=== PATIENT | male | born 1980 | race Hispanic/Latino ===

== ENCOUNTER 2023-09-30 11:02 | Emergency (ER) | payer SELFPAY ==
[2023-09-30 11:07] VITALS: BP 122/85
[2023-09-30 11:20] LABS: % Basophils 0.8 % (0-2); % Eosinophils 1.2 % (0-6); % Immature Granulocytes 0.4 % (0-0.5); % Lymphocytes 31.1 % (20.5-51.1); % Monocytes 7.2 % (1.7-9.3); % Neutrophils 59.3 % (42.2-75.2); Absolute Basophils 0.1 10^3/uL (0-0.2); Absolute Eosinophils 0.1 10^3/uL (0-0.7); Absolute Lymphocytes 2.3 10^3/uL (1.2-3.4); Absolute Monocytes 0.5 10^3/uL (0.1-0.6); Absolute Neutrophils 4.4 10^3/uL (1.4-6.5); Hematocrit 49.2 % (39.0-52.0); Hemoglobin 17.5 g/dL (13.0-18.0); Mean Corp Hgb Conc. 35.6 g/dL (33.0-37.0); Mean Corpuscular Hgb 29.9 pg (27.0-31.0); Nucleated Red Blood Cells % 0 % (-); Platelet Count 301 10^3/uL (130-400); Red Blood Cell Count 5.86 10^6/uL (4.70-6.10); White Blood Cell Count 7.4 10^3/uL (4.8-10.8)
[2023-09-30 11:39] LABS: ALT (SGPT) 41 U/L (0-50); AST (SGOT) 33 U/L (17-59); Albumin 4.3 g/dl (3.5-5.0); Alkaline Phosphatase 133 U/L (38-126); Blood Urea Nitrogen 17 mg/dl (9-20); Calcium 9.1 mg/dl (8.4-10.2); Carbon Dioxide 26 mmol/L (22-30); Chloride 104 mmol/L (98-107); Glucose 299 mg/dl (70-99); Potassium 4.2 mmol/L (3.5-5.1); Sodium 136 mmol/L (135-145); Total Protein 7.1 g/dl (6.3-8.2); eGFR > 60.00
[2023-09-30 11:43] LABS: Troponin I < 0.012 ng/ml
[2023-09-30 11:48] VITALS: BMI 25.1
[2023-09-30 12:00] VITALS: BP 100/77
--- NOTE | 2023-09-30 12:21 | ED.GENMED ---
History of Present Illness
General
Chief Complaint: Chest Problem
Source: patient
Exam Limitations: none
Time Seen by Provider: 09/30/23 12:05
Travel History
Have you had any contact with someone who has COVID-19?: No
Do you have any symptoms of coronavirus? Fever > 100 degrees, chills, cough, shortness of breath, sore throat, loss of taste or smell, muscle aches, or headache?: No
History of Present Illness
History of Present Illness:
43-year-old male with syz-zivwecr-pwsmctwal diabetes presents here for evaluation of chest pain that started yesterday. Sharp stabbing in nature intermittent made worse with breathing. He notes slight short of breath and dizziness as well. He
flew here from [place] about 4 days ago. He denies any leg swelling or calf pain. He notes a cough but denies hemoptysis. No fever. The pain does radiate to his back slightly. No other complaints at this time
Phy Exam
Physical Exam
Physical Exam:
General: Well-appearing male no acute respiratory distress
HEENT: Normocephalic atraumatic neck is supple
Heart: Regular rate and rhythm no murmur
Lungs: Clear to auscultation bilaterally no wheezing
Abdomen soft nontender nondistended no guarding rebound normal bowel
Course
Orders/Labs/Results
Orders:
Orders
09/30/23 11:09
Electrocardiogram (*1) Urgent
Reason for Study: Chest Pain
EKG- Treatment ONCE
09/30/23 11:15
Complete Blood Count/With Diff Urgent
Comprehensive Metabolic Panel Urgent
Troponin I Urgent
09/30/23 12:35
D-Dimer Urgent
09/30/23 13:13
CR Chest - 2 Views Urgent
Comment:
Reason For Exam: chest pain
Abnormal Lab Results
09/30/23
11:15
Creatinine 0.6 L mg/dL
(0.7-1.3)
Glucose 299 H mg/dl
(70-99)
Alkaline Phosphatase 133 H U/L
(38-126)
09/30/23 11:15
09/30/23 11:15
Vital Signs
Initial and Last Documented VS:
Initial Vital Signs
Temp Pulse Resp BP Pulse Ox
98.3 F 74 16 122/85 98
09/30/23 11:07 09/30/23 11:07 09/30/23 11:07 09/30/23 11:07 09/30/23 11:07
Last Documented Vital Signs
Temp Pulse Resp BP Pulse Ox
98.3 F 74 16 122/85 97
09/30/23 11:07 09/30/23 11:07 09/30/23 11:07 09/30/23 11:07 09/30/23 11:48
MDM/Problems Addressed
Differential Diagnosis Includes:
Chest pain with recent travel. Will order D-dimer to evaluate for potential for PE. His vital signs are stable otherwise. He is diabetic. Troponin undetectable EKG will be reviewed. Currently he is pain-free
*Critical Care Note
Total Time (30-74mins, 75-104mins- exclusive of procedures): Not Applicable
Update Note
Update Note:
Please note history and physical was performed with [place] speaking site interpreter on language line. Upon reevaluation, patient looks nontoxic. Workup. Negative with negative troponin and normal D-dimer. Blood sugar is 299. He has been taking 875
mg of metformin once a day. He just flew here from [place] and will be staying here for the remainder of his time. Will increase metformin to 500 mg twice a day. Contacted family practice residency for follow up.
ED Attending Note
-
Portions of this chart may have been created with voice recognition software.� Occasional wrong word or��sound alike� substitutions may have occurred due to the inherent limitations of voice recognition software.
Discharge Plan
Departure
Patient Disposition: Home (Routine Discharge)
Date of Disposition: 09/30/23
Time of Disposition: 14:42
Patient with high blood pressure during this ER visit?: No
Discharge Problem:
Chest pain
Instructions: Chest Pain PCP Follow Up
Prescriptions:
New
metformin 500 mg tablet
500 mg PO BID Qty: 30 0RF
Referrals:
NONE,* [Family Provider] -
Activity Restrictions/Additional Instructions:
Please increase metformin to 500 mg twice a day. Follow-up with family doctor for further evaluation. Return if worse otherwise. Please call phone number to set appointment.
Interventions
Interventions:
*Risk Screen - Suicide Last Done: 09/30/23 11:48
*General Assessment Last Done: 09/30/23 11:48
*Neglect/Abuse Screening Last Done: 09/30/23 11:48
ED- Fall Risk Assessment Last Done: 09/30/23 11:48
*ED COVID-19 Vaccine History Last Done: 09/30/23 11:07
ED- Cardiac Assessment Last Done: 09/30/23 11:48
ED- Pulmonary Assessment Last Done: 09/30/23 11:48
Discharge Date and Time
Print Language: MAORI
[2023-09-30 12:56] LABS: D-Dimer 0.28 ug/mlFEU (0.00-0.50)
--- NOTE | 2023-09-30 15:12 | EDRN ---
Reviewed discharge instructions with patient via [employer]. Verbalized understanding. [facility]
[2023-09-30 15:14] VITALS: BP 113/79
== END 2023-09-30 15:05 | disposition home or self-care (01) ==
LOC: EMR 11:02
PROVIDERS: Physician Assistant; EMERGENCY PHYSICIAN Emergency Medicine
DX: R07.89 Other chest pain (principal); E11.9 Type 2 diabetes mellitus without complications
CPT/HCPCS: 99285; 71046; 80053; 84484; 85025; 85379; 93005

== ENCOUNTER → 2024-04-15 15:40 | Outpatient (REF) | payer OTHER, SELFPAY ==
[2024-04-15 16:50] LABS: ALT (SGPT) 55 U/L (0-50); AST (SGOT) 35 U/L (17-59); Albumin 4.7 g/dl (3.5-5.0); Alkaline Phosphatase 111 U/L (38-126); Blood Urea Nitrogen 22 mg/dl (9-20); Calcium 9.6 mg/dl (8.4-10.2); Carbon Dioxide 26 mmol/L (22-30); Chloride 100 mmol/L (98-107); Glucose 199 mg/dl (70-99); Potassium 3.9 mmol/L (3.5-5.1); Sodium 142 mmol/L (135-145); Total Bilirubin 0.3 mg/dl (0.2-1.3); Total Protein 7.7 g/dl (6.3-8.2); eGFR > 60.00
[2024-04-15 16:59] LABS: Microalbumin, Random Urine 1.7 mg/dl (0.6-1.7); Microalbumin/creatinine Ratio 10.1 mg/g
[2024-04-16 08:53] LABS: Glycohemoglobin (HgbA1c) 11.9 % (4.0-5.6)
== END ==
LOC: REG 15:40
PROVIDERS: ATTENDING PHYSICIAN Nurse Practitioner Adult Health
DX: E11.65 Type 2 diabetes mellitus with hyperglycemia (principal)
CPT/HCPCS: 36415; 80053; 82043; 82570; 83036

== ENCOUNTER → 2024-08-19 11:56 | Outpatient (REF) | payer OTHER, SELFPAY ==
[2024-08-19 15:26] LABS: Microalbumin/creatinine Ratio 10.9 mg/g
[2024-08-19 15:32] LABS: ALT (SGPT) 26 U/L (0-50); AST (SGOT) 22 U/L (17-59); Albumin 4.9 g/dl (3.5-5.0); Alkaline Phosphatase 104 U/L (38-126); Blood Urea Nitrogen 22 mg/dl (9-20); Calcium 9.4 mg/dl (8.4-10.2); Carbon Dioxide 25 mmol/L (22-30); Chloride 101 mmol/L (98-107); Glucose 159 mg/dl (70-99); Potassium 3.9 mmol/L (3.5-5.1); Sodium 138 mmol/L (135-145); Total Bilirubin 0.9 mg/dl (0.2-1.3); Total Protein 7.7 g/dl (6.3-8.2); eGFR > 60.00
[2024-08-20 08:13] LABS: Glycohemoglobin (HgbA1c) 9.9 % (4.0-5.6)
== END ==
LOC: CLINIC 11:56
PROVIDERS: ATTENDING PHYSICIAN Nurse Practitioner Adult Health
DX: E11.65 Type 2 diabetes mellitus with hyperglycemia (principal)
CPT/HCPCS: 36415; 80053; 82043; 82570; 83036

== ENCOUNTER → 2024-12-23 10:49 | Outpatient (REF) | payer OTHER, SELFPAY ==
[2024-12-23 11:59] LABS: ALT (SGPT) 52 U/L (0-50); AST (SGOT) 38 U/L (17-59); Albumin 4.7 g/dl (3.5-5.0); Alkaline Phosphatase 110 U/L (38-126); Blood Urea Nitrogen 19 mg/dl (9-20); Calcium 9.3 mg/dl (8.4-10.2); Carbon Dioxide 24 mmol/L (22-30); Chloride 107 mmol/L (98-107); Glucose 195 mg/dl (70-99); HDL Cholesterol 45 mg/dl; LDL Cholesterol, Calculated 131 mg/dl; Potassium 4.2 mmol/L (3.5-5.1); Sodium 139 mmol/L (135-145); Total Protein 7.9 g/dl (6.3-8.2); Very Low Density Lipoprotein 73 mg/dl (0-30); eGFR > 60.00
[2024-12-23 13:56] LABS: Glycohemoglobin (HgbA1c) 11.2 % (4.0-5.6)
== END ==
LOC: CLINIC 10:49
PROVIDERS: ATTENDING PHYSICIAN Nurse Practitioner Adult Health
DX: E11.65 Type 2 diabetes mellitus with hyperglycemia (principal)
CPT/HCPCS: 36415; 80053; 80061; 83036

== ENCOUNTER → 2025-01-18 11:08 | Outpatient (REF) | payer OTHER, SELFPAY ==
[2025-01-18 12:26] LABS: ALT (SGPT) 34 U/L (0-50); AST (SGOT) 22 U/L (17-59); Albumin 4.3 g/dl (3.5-5.0); Alkaline Phosphatase 100 U/L (38-126); Blood Urea Nitrogen 17 mg/dl (9-20); Calcium 9.0 mg/dl (8.4-10.2); Carbon Dioxide 26 mmol/L (22-30); Chloride 105 mmol/L (98-107); Glucose 166 mg/dl (70-99); Potassium 4.4 mmol/L (3.5-5.1); Sodium 139 mmol/L (135-145); Total Protein 7.0 g/dl (6.3-8.2); eGFR > 60.00
== END ==
LOC: REG 11:08
PROVIDERS: ATTENDING PHYSICIAN Nurse Practitioner Adult Health
DX: E11.65 Type 2 diabetes mellitus with hyperglycemia (principal)
CPT/HCPCS: 36415; 80053

== ENCOUNTER → 2025-02-24 11:18 | Outpatient (REF) | payer OTHER, SELFPAY ==
[2025-02-24 12:40] LABS: Blood Urea Nitrogen 15 mg/dl (9-20); Calcium 9.0 mg/dl (8.4-10.2); Carbon Dioxide 24 mmol/L (22-30); Chloride 105 mmol/L (98-107); Glucose 173 mg/dl (70-99); Potassium 4.1 mmol/L (3.5-5.1); Sodium 137 mmol/L (135-145); eGFR > 60.00
[2025-02-24 13:38] LABS: Glycohemoglobin (HgbA1c) 10.8 % (4.0-5.6)
== END ==
LOC: CLINIC 11:18
PROVIDERS: ATTENDING PHYSICIAN Nurse Practitioner Adult Health
DX: E11.65 Type 2 diabetes mellitus with hyperglycemia (principal)
CPT/HCPCS: 36415; 80048; 83036